=== PATIENT | male | born 1950 | race Caucasian/White ===

== ENCOUNTER 2019-03-20 14:40 | Inpatient (IN) | payer OTHER, MEDICARE ==
[~2019-03-20] VITALS: Ht 175.3 cm; Wt 103.4 kg
[~2019-03-20 14:40] MED LIST: ACET1TAB55 PO; ALBU83IN INH; AMOX500T PO; AMOX500T2 PO; ASPI325T57 PO; ASPI81TA26 PO; ATOR1TAB19 PO; AUGM500T34 PO; AUGM875T28 PO; BAYE325T16 PO; BENA20TA8 PO; BENZ-18 PO; CEFD1CAP8 PO; CHLO125TA PO; CHLO25TA PO; CHLO50TA PO; CIPR-249 PO; CIPR-250 PO; CIPR250T3 PO; DOXY100T PO; DRIS50003 PO; FEBU40TA4 PO; FURO40TA2 PO; GABA-843 PO; GLIM1TAB4 PO; GLIM2TAB4 PO; HEPA10004 INJ; HUMA100I5 SC; HYDR-3713 PO; HYOS0.1248 PO; HYOS0.1256 SL; HYOS125TA PO; INSUHUMDS SC; LASI20TA3 PO; LASI40TA9 PO; LEVO750T13 PO; LORA0.5T5 PO; LORA1TAB4 PO; LOSA25TA14 PO; METO1TAB32 PO; METO1TAB7 PO; MILK120011 PO; MOXI1TAB PO; OMEP40CA97 PO; OXYC1TAB23 PO; PANT-23 PO; PRED-351 PO; PRED10TA2 PO; PRED20TA PO; PRED20TAB PO; PRED5TA PO; PROC1INJ IV; PROC1INJ5 IJ; PROC1INJ6 INJ; RA M10TA PO; Revlimid 10mg cap PO; TORS10TA3 PO; TRES1INJ SC; VITA50005 PO; prednisone PO
[2019-03-20] MEDS: IPRATROPIUM 0.5MG/ALBUTEROL 2.5MG INH SOL UD 3ML (DUONEB)(J7620) NEB ONE ×2 (15:13→15:15)
[2019-03-20] MEDS: LEVALBUTEROL 1.25 MG/0.5 ML CONCENTRATE NEB NEB PRN ×2 (15:16→18:22)
[2019-03-20 15:29] LABS: HEMATOCRIT 31.1 % (42.0-52.0); HEMOGLOBIN 9.5 g/dl (13.5-17.5); MEAN CORPUSCULAR HEMOGLOBIN 31.5 pg (27.0-33.0); MEAN CORPUSCULAR HGB CONC 30.5 g/dl (32.0-36.5); PLATELET COUNT, AUTOMATED 180 10^3/uL (150-450); RED BLOOD COUNT 3.02 10^6/uL (4.30-6.10)
[2019-03-20 15:50] LABS: ATYPICAL LYMPH 3 % (0-5); LYMPHOCYTES 12 % (16-44); MONOCYTES 5 % (0-5); NEUTROPHILS 76 % (28-66)
[2019-03-20 15:51] LABS: ANISOCYTOSIS 2+; HYPOCHROMASIA 2+
[2019-03-20 15:52] LABS: MICROCYTOSIS 3+
[2019-03-20 15:53] LABS: BURR CELLS 1+; PLATELET ESTIMATE NORMAL (NORMAL); TEAR DROP CELLS 1+
[2019-03-20 15:54] LABS: TARGET CELLS 1+
[2019-03-20 15:55] LABS: GIANT PLATELETS 1+; HELMET CELLS 1+
--- NOTE | 2019-03-20 15:55 | REP ---
Portable chest, 03:29 p.m., single AP view with the patient semi upright: Comparisons are the portable chest dated 06/11/[address] of 06/13/2018. The lung rojas are clear. The cardiac size is upper normal. The thang, mediastinum, skeletal structures are unremarkable. There is a right IJ Eysgwh-[id number]-Khjb with the tip in the superior vena cava, unchanged. Impression: No acute cardiopulmonary findings. Right IJ Qelydq-R-[id number], unchanged. Electronically Signed by Gabriele Capone MD 03/20/2019 03:46 P
[2019-03-20 15:59] LABS: ALBUMIN 3.3 GM/DL (3.2-5.2); ALT/SGPT 28 U/L (12-78); BILIRUBIN,DIRECT 0.3 MG/DL (0.0-0.2); BILIRUBIN,TOTAL 3.5 MG/DL (0.2-1.0); CK-MB VALUE MASS 1.7 NG/ML (<3.6); CPK CREATINE PHOSPHOKINASE 24 U/L (39-308); MB/CK RELATIVE INDEX 7.08 (< OR =4); NT-PRO BNP 965 PG/ML (<125); THYROXINE (T4) 6.5 UG/DL (4.5-12.0); TOTAL PROTEIN 5.5 GM/DL (6.4-8.2); TROPONIN I < 0.02 NG/ML (< 0.10)
[2019-03-20] MEDS ORDERED: ALLO100T PO (16:03)
[2019-03-20] MEDS ORDERED: ATOR40TA75 PO (16:03)
[2019-03-20] MEDS ORDERED: LOSA25TA14 PO (16:03)
[2019-03-20] MEDS ORDERED: FURO20TA2 PO ×2 (16:03)
[2019-03-20] MEDS ORDERED: VITA50005 PO (16:03)
[2019-03-20] MEDS ORDERED: HYDR-3713 PO (16:03)
[2019-03-20] MEDS ORDERED: ASPI81TA85 PO (16:03)
[2019-03-20] MEDS ORDERED: AUGM875T28 PO (16:05)
[2019-03-20 16:09] LABS: BLOOD UREA NITROGEN 38 MG/DL (7-18); CALCIUM LEVEL 8.5 MG/DL (8.8-10.2); CARBON DIOXIDE LEVEL 30 MEQ/L (21-32); CHLORIDE LEVEL 103 MEQ/L (98-107); CREATININE FOR GFR 1.29 MG/DL (0.70-1.30); GLOMERULAR FILTRATION RATE 59.1 (>49); GLUCOSE, FASTING 120 MG/DL (70-100); POTASSIUM SERUM 4.5 MEQ/L (3.5-5.1); SODIUM LEVEL 139 MEQ/L (136-145)
[2019-03-20] MEDS ORDERED: LIDOCAINE 5% (LIDODERM) PATCH TD ONE (16:15)
[2019-03-20] MEDS ORDERED: NS 500 ML IV ONE (16:15)
[2019-03-20] MEDS ORDERED: ISOVUE-370 76% 100ML VIAL (Q9967) As Ordered ONE (16:55)
--- NOTE | 2019-03-20 17:59 | REPVR ---
PROCEDURE INFORMATION: Exam: US Abdomen Limited, Right Upper Quadrant Exam date and time: 03/20/2019 5:30 PM Age: 68 years old Clinical indication: Abdominal pain; Flank; Right upper quadrant (ruq); Additional info: Ruq pain TECHNIQUE: Imaging protocol: Real-time ultrasound of the abdomen with image documentation. Examination was focused on the right upper quadrant. COMPARISON: GALLBLADDER US 04/28/2015 8:17 PM FINDINGS: Liver: Heterogeneous liver raising the suspicion for hepatic cirrhosis. Other infiltrating hepatic disorders are not excluded. No focal hepatic mass or intrahepatic duct dilatation. Gallbladder: Numerous tiny stones within the gallbladder. No gallbladder wall thickening or pericholecystic fluid. Common bile duct: Normal caliber common bile duct measuring 4.1 mm. Pancreas: Nonvisualization of the tail of the pancreas. No focal abnormality identified within the pancreas head or body. No pancreatic duct dilatation. Right kidney: The right kidney is normal in size measuring 10.9 cm in length. No focal right renal lesion or hydronephrosis. Mild thinning of the right renal cortex. IMPRESSION: 1. Cholelithiasis. 2. Heterogeneous liver raising the suspicion for hepatic cirrhosis. 3. Right renal cortical atrophy. Electronically signed by: Kory Rushing On 03/20/2019 18:00:47 PM
[2019-03-20] MEDS ORDERED: LORazepam 0.5 MG TAB PO ONE (18:30)
--- NOTE | 2019-03-20 18:38 | REPVR ---
PROCEDURE INFORMATION: Exam: CT Angiography Chest With Contrast Exam date and time: 03/20/2019 5:58 PM Age: 68 years old Clinical indication: Shortness of breath; Additional info: Hypoxia TECHNIQUE: Imaging protocol: Computed tomographic angiography of the chest with intravenous contrast. 3D rendering: MIP and/or 3D reconstructed images were created by the technologist. Radiation optimization: All CT scans at this facility use at least one of these dose optimization techniques: automated exposure control; mA and/or kV adjustment per patient size (includes targeted exams where dose is matched to clinical indication); or iterative reconstruction. Contrast material: ISOVUE 370; Contrast volume: 75 ml; Contrast route: IV; COMPARISON: CT ANGIO CHEST 05/12/2014 4:31 PM FINDINGS: Limitations: This examination is suboptimal for evaluation of mid and lower lung zone pulmonary arteries secondary to cardiac motion induced artifact. Tubes, catheters and devices: Right chest wall port with catheter tip in the upper SVC. Pulmonary arteries: No pulmonary arterial embolism identified. Aorta: Unremarkable. No aortic aneurysm. No aortic dissection. Lungs: Mild centrilobular pulmonary emphysema, most severe in the upper lung zones. Bilateral apical scar and parenchymal densities, improved compared to the prior examination. There are faint ground-glass lung opacities scattered about both lungs. Pleural space: Unremarkable. No pneumothorax. No pleural effusion. Heart: Coronary atherosclerosis. No cardiomegaly or pericardial effusion. Gallbladder and bile ducts: Cholelithiasis. Lymph nodes: Unremarkable. No enlarged lymph nodes. Bones/joints: Degenerative spondylosis of the thoracic spine. No fracture or suspicious bone lesion. Soft tissues: Unremarkable. IMPRESSION: 1. No pulmonary arterial embolism identified. 2. Mild pulmonary emphysema. 3. Scattered faint ground-glass lung opacities. 4. Cholelithiasis. Electronically signed by: Kory Rushing On 03/20/2019 18:40:13 PM
[2019-03-20] MEDS ORDERED: MAALOX 30 ML SUSP *UDC PO PRN (19:15)
[2019-03-20] MEDS ORDERED: ACETAMINOPHEN TAB 650MG DOSE (2X325MG) PO PRN (19:15)
[2019-03-20] MEDS ORDERED: MOM 30ML SUSPENSION UDC PO PRN (19:15)
--- NOTE | 2019-03-20 19:17 | HPEPDOC ---
[facility] Medical History & Physical Date of Admission Mar 20, 2019 Date of Service: Mar 20, 2019 Primary Care Physician: Salty Piedra Attending Physician: MELANI MORRIS MD History and Physical TIME OF SERVICE: 7:45 PM CHIEF COMPLAINT: Shortness of breath HISTORY OF PRESENT ILLNESS: This is a 68-year-old male who presents with complaints of progressively worsening shortness of breath since Thursday shortly after he was discharged from [facility] where was treated for an upper respiratory tract infection. He denies having associated chest pain, or runny nose. Per discussion with ER provider on arrival his O2 sats were in the 90s on 2-3 L by nasal cannula. He is also complaining of right upper quadrant abdominal pain for more than 1 month that's worse with eating. He denies having vomiting. He reports being told that he had gallbladder sludge but surgery was not going to be done because the procedure be risky. 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 HOME MEDICATIONS: Please see below. PHYSICAL EXAMINATION: VITAL SIGNS: Please see below GEN: well nourished / well developed/ appears ill INTEGUMENT: He doesn't have facial plethora HEENT:NCAT / lips cyanotic / NC in place / mucus membranes moist and pink / sclera anicteric CVS: RRR/ radial and dorsalis pedis pulses intact LUNGS: He has not using accessory muscles / there is decreased respiratory expansion/ lungs are hyper resonant on percussion / he has decreased breath sounds bilaterally ABDOMEN: soft & tender with palpation on the right side MSK/EXTREMITIES: range of motion intact in all 4 extremities NEURO: CN 2-12 are grossly intact / speech is not dysarthric PSYCH: alert and oriented to person place and time/ able to understand and follow all commands LABORATORY DATA: See below. IMAGING: Chest x-ray " Impression: No acute cardiopulmonary findings. Right IJ [id number], unchanged." Gallbladder ultrasound " IMPRESSION: 1. Cholelithiasis. 2. Heterogeneous liver raising the suspicion for hepatic cirrhosis. 3. Right renal cortical atrophy. " CTA chest " IMPRESSION: 1. No pulmonary arterial embolism identified. 2. Mild pulmonary emphysema. 3. Scattered faint ground-glass lung opacities. 4. Cholelithiasis. MICROBIOLOGY: Please see below. ASSESSMENT: Mr. Torres is a 68-year-old male with a past hx of ILD, chronic O2 dependent respiratory failure, MDS with anemia, CAD, GERD, gout, IDDM, CKD III, HFpEF, carpal tunnel, chronic anorectal fistula who is admitted for evaluation of SIRS and acute hypoxemic respiratory failure. PLAN: 1. Acute hypoxemic respiratory failure Possibly due to upper respiratory tract infection vs ILD exacerbation, less likely 2/2 fluid overload He is requiring more oxygen than his baseline of 2-3 L His ABG, BNP and chest x-ray have been reviewed The mild lactic acidosis is possibly due to hypoxemia? Plan: Admit to PCU/supplemental oxygen/continuous pulse ox/elevate head of bed/aspiration precautions/will give 1 dose of IV Lasix/follow-up influenza it's negative, we will start him on steroids and consult pulmonology / we will continue the antibiotics that he was taking at home, but will not escalate the abx because he denies having a cough, runny nose or fever 2. SIRS Alan reactive as we do not have a source of infection. SIRS criteria include HR >90, > RR 20 & WBC count of 17 His lactic acid was elevated Plan: Sepsis protocol w repeat lactic acid and exam in 3H / continue with abx / give IV fluids because his BNP was elevated and he does not appear dry /f/u blood cx / Acetaminophen PRN for fever 3. ILD Plan: Give steroids if influenza panel is negative / the daytime team may consult pulmonology in the morning 4. Chronic HFpEF/pulmonary hypertension / chronic hypertension He is clinically compensated despite elevated BNP. The chest x-ray showed clear lung rojas. Plan: Continue with home dose of Lasix, metoprolol and losartan in the morning 5. Abdominal pain Possibly secondary to biliary dyskinesia vs other hepatic process. The CT reported that his liver looks heterogeneous and he may have liver cirrhosis, but His LFTs are within normal limits Plan: HIDA scan if there are findings consistent with biliary dyskinesia, the daytime team may consider surgery consult/will need an outpatient GI eval to determine if needs biopsy or additional testing to rule out liver cirrhosis 6. MDS with macrocytic anemia Plan: Hemoglobin is at baseline Plan: Follow-up CBC 7. Chronic CAD Plan: Continue metoprolol, aspirin, and atorvastatin 8. IDDM with neuropathy Plan: diabetic diet / f/u accuchecks & A1C / hypoglycemia protocol / switch from Tresiba 45 units daily to detemir 45 units daily / continue with lispro 3 units of breakfast, 7 units at lunchtime, and 10 units at dinnertime / continue with gabapentin / sliding scale insulin / hold oral anti-glycemics 9. CKD 3 Plan: Follow-up BMP 10. Gout Plan: Continue with allopurinol 11. GERD Plan: Continue with PPI 12. Nonhealing anorectal fistula Plan: Wound care 13. Obesity with BMI of 34 This complicates care. DVT PROPHYLAXIS: Lovenox DISPOSITION: Home after more than 2 midnight's stay Vital Signs Vital Signs Date Time Temp Pulse Resp B/P (MAP) Pulse Ox O2 Delivery O2 Flow Rate FiO2 03/20/19 18:55 96 93 03/20/19 18:15 129/96 (107) 03/20/19 16:55 20 Nasal Cannula 2.0 03/20/19 14:40 99.9 Laboratory Data Labs 24H Laboratory Tests 2 03/20/19 15:11: Nucleated Red Blood Cells % (auto) 0.0, Neutrophils 76H, Band Neutrophils 4, Lymphocytes (Manual) 12L, Monocytes (Manual) 5, Atypical Lymphocytes 3, Hypochromasia 2+, Anisocytosis 2+, Microcytosis 3+, Macrocytosis 1+, Target Cells 1+, Tear Drop Cells 1+, Helmet Cells 1+, Melodie Cells 1+, Giant Platelets 1+, Platelet Estimate NORMAL, Anion Gap 6L, Glomerular Filtration Rate 59.1, Lactic Acid Level 2.6*H, Calcium Level 8.5L, Total Bilirubin 3.5H, Direct Bilirubin 0.3H, Aspartate Amino Transf (AST/SGOT) 14, Alanine Aminotransferase (ALT/SGPT) 28, Alkaline Phosphatase 105, Total Creatine Kinase 24L, Creatine Kinase MB 1.7, Creatine Kinase MB Relative Index 7.08H, Troponin I < 0.02, WS-Yle-R-Type Natriuretic Peptide 965H, Total Protein 5.5L, Albumin 3.3, Albumin/Globulin Ratio 1.50, Thyroid Stimulating Hormone (TSH) 2.800, Thyroxine (T4) 6.5 03/20/19 15:28: POC pH (Misc Panel) 7.524H, POC Base Excess (Misc Panel) 6.0H, POC Saturated Percent O2 (Misc) 95, POC pO2 (Misc Panel) 66.0L, POC pCO2 (Misc Panel) 35.0, POC HCO3 (Misc Panel) 28.9H, POC Total CO2 (Misc Panel) 30.0H CBC/BMP Laboratory Tests 03/20/19 15:11 Microbiology Microbiology 03/20/19 Blood Culture, Received Pending Home Medications Scheduled Allopurinol (Allopurinol) 100 Mg Tablet, 200 MG PO DAILY Amoxicillin/Potassium Clav (Augmentin 875-125 Tablet) 1 Each Tablet, 1 TAB PO BID ON 3RD DAY OF 5 DAY COURSE Aspirin (Aspir 81) 81 Mg Tablet.dr, 81 MG PO DAILY Atorvastatin Calcium (Atorvastatin Calcium) 40 Mg Tablet, 40 MG PO DAILY Ergocalciferol (Vitamin D2) (Vitamin D2) 50,000 Units Cap, 50,000 UNITS PO 1XWK MONDAYS Furosemide (Furosemide) 20 Mg Tablet, 20 MG PO ACS Furosemide (Furosemide) 20 Mg Tablet, 40 MG PO DAILY LUNCH Gabapentin (Gabapentin) 300 Mg Capsule, 300 MG PO QHS Hyoscyamine Sulfate (Hyoscyamine Sulfate) 0.125 Mg Tab.subl, 0.125 MG PO WM Insulin Degludec (Tresiba Flextouch U-200) 200 Unit/1 Ml Insuln.pen, 45 UNIT SC DAILY Insulin Lispro (Humalog Kwikpen U-100) 100 Unit/Ml Inj, 3 UNITS SC AC USES AT BREAKFAST Insulin Lispro (Humalog Kwikpen U-100) 100 Unit/Ml Inj, 7 UNITS SC AC USES AT LUNCHTIME Insulin Lispro (Humalog Kwikpen U-100) 100 Unit/Ml Inj, 10 UNITS SC AC USES AT DINNERTIME Losartan Potassium (Losartan Potassium) 25 Mg Tablet, 25 MG PO DAILY Melatonin (Melatonin) 10 Mg Tablet, 10 MG PO QHS Metoprolol Succinate (Metoprolol Succinate) 50 Mg Tab.er.24h, 50 MG PO DAILY Pantoprazole Sodium (Pantoprazole Sodium) 40 Mg Tablet.dr, 40 MG PO DAILY Scheduled PRN Hydrocodone/Acetaminophen (Hydrocodone-Acetamin 5-325 mg) 1 Each Tablet, 1 TAB PO Q6H PRN for PAIN Lorazepam (Lorazepam) 0.5 Mg Tablet, 0.5 MG PO Q6H PRN for ANXIETY Allergies Coded Allergies: No Known Allergies (Unverified , 09/24/18) A-FIB/CHADSVASC A-FIB History Current/History of A-Fib/PAF?: No Current PO Anticoag Therapy: No MELANI MORRIS MD Mar 20, 2019 19:17
[2019-03-20] MEDS ORDERED: FUROSEMIDE 20 MG TAB PO ONE (20:00)
[2019-03-20] MEDS: DOCUSATE SODIUM 100 MG CAP PO SCH (20:11)
[2019-03-20] MEDS ORDERED: GLUCAGON FOR INJ 1 MG VIAL (J1610) SC PRN (20:45)
[2019-03-20] MEDS ORDERED: DEXTROSE 50% 50 ML SYRINGE IV PRN (20:45)
[2019-03-20] MEDS ORDERED: GLUCOSE 4 GM CHEW TABLET PO PRN (20:45)
[2019-03-20] MEDS ORDERED: NORCO, ANEXSIA 5/325MG TABLET (HYDROcodone/ACETAMINOPHEN) PO PRN (20:45)
[2019-03-20] MEDS ORDERED: HumaLOG INSULIN (NovoLOG) PER UNIT SC SCH (21:00)
[2019-03-20] MEDS: **NOTE PATIENT COMMENT** MISC XX SCH (21:00)
[2019-03-20 22:00] VITALS: BP 146/63; O2SAT 95
[2019-03-20] MEDS: GABAPENTIN 300 MG CAP PO SCH (22:30)
[2019-03-20] MEDS: methylPREDNISolone INJ 125 MG/2 ML VIAL (J2930) IV SCH (22:30)
[2019-03-20] MEDS: LORazepam 0.5 MG TAB PO PRN (22:30)
[2019-03-20 23:00] VITALS: O2SAT 96
[2019-03-20] MEDS: RAMELTEON 8 MG TAB (ROZEREM) PO SCH (23:45)
[2019-03-21] VITALS (13 sets, daily range): BP systolic 103–145; BP diastolic 54–96; O2SAT 90–96
[2019-03-21 00:26] LABS: INFLUENZA A AMPLIFICATION NEGATIVE (NEGATIVE); INFLUENZA B AMPLIFICATION NEGATIVE (NEGATIVE)
[2019-03-21] MEDS: AUGMENTIN 875 MG TAB PO SCH ×3 (00:58→21:25)
[2019-03-21 05:07] LABS: HEMATOCRIT 26.4 % (42.0-52.0); HEMOGLOBIN 8.1 g/dl (13.5-17.5); MEAN CORPUSCULAR HEMOGLOBIN 31.5 pg (27.0-33.0); MEAN CORPUSCULAR HGB CONC 30.7 g/dl (32.0-36.5); MEAN CORPUSCULAR VOLUME 102.7 fl (80.0-96.0); PLATELET COUNT, AUTOMATED 135 10^3/uL (150-450); RED BLOOD COUNT 2.57 10^6/uL (4.30-6.10)
[2019-03-21 05:27] LABS: CALCIUM LEVEL 7.7 MG/DL (8.8-10.2); CREATININE FOR GFR 1.3 MG/DL (0.70-1.30); GLOMERULAR FILTRATION RATE 58.6 (>49); MAGNESIUM LEVEL 2.1 MG/DL (1.8-2.4); POTASSIUM SERUM 5.5 MEQ/L (3.5-5.1)
[2019-03-21 06:09] LABS: ABG BASE EXCESS 2.3 (-2.0-2.0); ABG HCO3 26.5 MEQ/L (22.0-26.0); ABG O2 SATURATION 97.9 % (95.0-99.0); ABG PARTIAL PRESSURE CO2 39.8 mmHg (35.0-45.0); ABG PARTIAL PRESSURE O2 105.7 mmHg (75.0-100.0); ABG STANDARD HCO3 26.5 MEQ/L (22.0-26.0); ABG TOTAL CO2 27.8 MEQ/L (23.0-31.0); ABG pH (ARTERIAL) 7.442 UNITS (7.350-7.450)
[2019-03-21] MEDS: HumaLOG INSULIN (NovoLOG) PER UNIT SC SCH ×7 (06:12→21:00)
[2019-03-21] MEDS ORDERED: HumaLOG INSULIN (NovoLOG) PER UNIT SC SCH (07:30)
[2019-03-21] MEDS: HYOSCYAMINE SULFATE 0.125 MG SUBL TABLET PO SCH ×3 (08:00→18:06)
[2019-03-21] MEDS ORDERED: VITAMIN D 50,000 UNITS CAPSULE (ERGOCALCIFEROL 1.25MG) PO SCH (09:00)
[2019-03-21] MEDS ORDERED: PANTOPRAZOLE 40MG TAB (PROTONIX) PO SCH (09:00)
--- NOTE | 2019-03-21 12:19 | ECGEPIP ---
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
--- NOTE | 2019-03-21 12:28 | ECGEPIP ---
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
[2019-03-21] MEDS ORDERED: PATIROMER SORBITEX CALCIUM 8.4 GM POWDER PACKET (VELTASSA) PO ONE (13:00)
[2019-03-21] MEDS: ENOXAPARIN 40 MG/0.4 ML SYRINGE (J1650) SC SCH (14:12)
[2019-03-21] MEDS: ASPIRIN 81 MG ENTERIC TAB PO SCH (14:13)
[2019-03-21] MEDS: allopurinoL 100 MG TAB PO SCH (14:13)
[2019-03-21] MEDS: ATORVASTATIN 20 MG TAB PO SCH (14:13)
[2019-03-21] MEDS: LEVEMIR (INSULIN DETEMIR) 1 UNITS/0.01ML SC SCH (14:15)
[2019-03-21] MEDS: METOPROLOL SUCC (TopROL XL) 50MG **XL** TAB PO SCH (14:16)
[2019-03-21] MEDS: FUROSEMIDE 20 MG TAB PO SCH ×2 (14:16→17:29)
[2019-03-21] MEDS: DOCUSATE SODIUM 100 MG CAP PO SCH ×2 (14:32→21:25)
[2019-03-21] MEDS: LOSARTAN 25 MG TAB PO SCH (14:35)
--- NOTE | 2019-03-21 15:06 | REP ---
Hepatobiliary scan and gallbladder ejection fraction: History: Right upper quadrant abdominal pain, worse with eating. Question low gallbladder ejection fraction. Cholelithiasis on ultrasound of the right upper quadrant the previous day. Technique: 6.6 mCi of technetium-99m mebrofenin was injected and sequential anterior images are acquired. 65 minutes after the mebrofenin injection, the patient consumed 8 ounces Ensure and an additional 60 minutes of imaging was acquired. Regions of interest are plotted around the gallbladder. Findings: The initial hepatocellular parenchymal uptake phase is normal and homogeneous. Intra- and extra-hepatic bile ducts are labeled by the 15 -minute image. The gallbladder is first labeled on the 15 -minute image. There is normal washout from the liver parenchyma into the gallbladder and small intestine on subsequent images. The gallbladder ejection fraction is zero %. Values greater than 35 % are considered normal with this technique. Impression: Normal hepatobiliary scan and zero percent gallbladder ejection fraction. Electronically Signed by Flo Lilly MD 03/21/2019 02:57 P
[2019-03-21] MEDS ORDERED: GLUCAGON FOR INJ 1 MG VIAL (J1610) SC PRN (17:15)
[2019-03-21] MEDS ORDERED: GLUCOSE 4 GM CHEW TABLET PO PRN (17:15)
[2019-03-21] MEDS ORDERED: DEXTROSE 50% 50 ML SYRINGE IV PRN (17:15)
[2019-03-21] MEDS: LORazepam 0.5 MG TAB PO PRN (17:29)
--- NOTE | 2019-03-21 17:51 | IPNPDOC ---
Date Seen The patient was seen on 03/21/19. Progress Note SUBJECTIVE: 68-year-old male with past medical history of interstitial lung disease, COPD, coronary artery disease, diabetes mellitus, chronic kidney disease, diastolic CHF and MDS (transfusion dependent), was admitted for exacerbation of ILD/COPD. Patient was recently admitted at [facility] for 3- 4 days, received IV steroids and antibiotics with improvement in symptoms, was sent home without any oral steroids and his symptoms recurred, worsened over the past few days and he came here. Patient reports improvement in shortness of breath and cough since getting treatment here, including steroids, nebulizers and antibiotics. Patient is currently close to his baseline, usually uses oxygen during sleep, 2 L via nasal cannula. Patient is currently satting well on 2 L of oxygen. He denies any additional symptoms at this time, denies any chest pain, nausea, vomiting, abdominal pain or diarrhea. He does report a dry cough at this time. 10 point review of system is negative except for above PHYSICAL EXAMINATION: VITAL SIGNS: Please see below. GENERAL: No distress HEENT: Normocephalic, atraumatic, moist mucous membranes NECK: Supple CARDIOVASCULAR EXAMINATION: S1, S2, no murmurs RESPIRATORY EXAMINATION: Scattered rhonchi, mild wheezing ABDOMINAL EXAMINATION: Soft, nontender, nondistended, positive bowel sounds EXTREMITIES: Range of motion intact SKIN: No rash NEUROLOGICAL EXAMINATION: Alert and oriented 3, no focal deficits PSYCHIATRIC EXAMINATION: Calm and cooperative LABORATORY DATA, IMAGING STUDIES, MICROBIOLOGY: Please see below. ASSESSMENT AND PLAN: 68-year-old male with multiple medical comorbidities is admitted for COPD/ILD exacerbation. PROBLEMS: 1. COPD/ILD exacerbation: Flu and respiratory viral panel negative, CT without any consolidation, continue IV steroids, Augmentin, and nebulizer treatments as needed. Continue supplemental oxygen as needed to maintain O2 sats between 88- 92%. 2. CHF with preserved ejection fraction: Continue home Lasix, will target a net negative goal of 500-1000 mL. 3. Coronary artery disease: Continue optimal medical management with aspirin, statin and beta selvin. 4. Diabetes mellitus: Continue home Levemir, pre-meal insulin along with sliding scale insulin coverage before meals and at bedtime. 5. Hypertension: Continue losartan and metoprolol. 6. GERD: Continue Protonix. 7. CKD: Creatinine at baseline, will monitor 8. Biliary sludge: Patient has had issues with biliary sludge for the past few years, eval by general surgery the outpatient setting, surgery was not performed due to medical comorbidities, HIDA scan shows appropriate drainage of bile into the gallbladder with gallbladder's ejection fraction of 0%. Patient clinically benign, we'll recommend outpatient follow-up with general surgery. DVT prophylaxis: Lovenox. GI prophylaxis: Protonix VS, I&O, 24H, Fishbone Vital Signs/I&O Vital Signs Date Time Temp Pulse Resp B/P (MAP) Pulse Ox O2 Delivery O2 Flow Rate FiO2 03/21/19 15:52 98.4 81 18 103/55 (71) 94 1.6 03/21/19 11:03 Nasal Cannula I&O- Last 24 Hours up to 6 AM 03/21/19 06:00 Intake Total 1130 ml Output Total 1075 ml Balance 55 ml Laboratory Data 24H LABS Laboratory Tests 2 03/20/19 19:57: Lactic Acid Followup at 4 Hours 1.6, NH-Odu-D-Type Natriuretic Peptide 913H 03/20/19 22:13: Bedside Glucose (Misc Panel) 164H 03/20/19 23:48: Influenza Type A (RT-PCR) NEGATIVE, Influenza Type B (RT-PCR) NEGATIVE 03/21/19 03:17: Bedside Glucose (Misc Panel) 249H 03/21/19 04:31: Nucleated Red Blood Cells % (auto) 0.0, Anion Gap 9, Glomerular Filtration Rate 58.6, Calcium Level 7.7L, Magnesium Level 2.1 03/21/19 05:56: Blood Gas Bicarbonate Standard 26.5H, Arterial Blood pH 7.442, Arterial Blood Partial Pressure CO2 39.8, Arterial Blood Partial Pressure O2 105.7H, Arterial Blood Total CO2 27.8, Arterial Blood HCO3 26.5H, Arterial Blood Base Excess 2.3H, Arterial Blood Oxygen Saturation 97.9 03/21/19 13:59: Bedside Glucose (Misc Panel) 328H 03/21/19 17:16: Bedside Glucose (Misc Panel) 314H CBC/BMP Laboratory Tests 03/21/19 04:31 03/21/19 08:00 Microbiology Microbiology 03/21/19 Respiratory Virus Panel (PCR) (STEPHANIE) - Final, Complete 03/20/19 Blood Culture - Preliminary, Resulted No growth after 24 hours . All specim... RADHA THOMPSON MD Mar 21, 2019 17:51
[2019-03-21] MEDS: GABAPENTIN 300 MG CAP PO SCH (21:25)
[2019-03-21] MEDS: methylPREDNISolone INJ 125 MG/2 ML VIAL (J2930) IV SCH (21:25)
[2019-03-21] MEDS: PANTOPRAZOLE 40MG TAB (PROTONIX) PO SCH (21:25)
[2019-03-21] MEDS: RAMELTEON 8 MG TAB (ROZEREM) PO SCH (21:25)
[2019-03-22] VITALS (8 sets, daily range): BP systolic 120–139; BP diastolic 43–60; O2SAT 93–100
[2019-03-22] MEDS: **NOTE PATIENT COMMENT** MISC XX SCH ×2 (00:56→21:00)
[2019-03-22] MEDS: LORazepam 0.5 MG TAB PO PRN ×2 (05:32→17:12)
[2019-03-22 06:33] LABS: HEMATOCRIT 27.7 % (42.0-52.0); HEMOGLOBIN 8.6 g/dl (13.5-17.5); PLATELET COUNT, AUTOMATED 190 10^3/uL (150-450); RED BLOOD COUNT 2.69 10^6/uL (4.30-6.10); WHITE BLOOD COUNT 7.1 10^3/uL (4.0-10.0)
[2019-03-22 06:56] LABS: ALBUMIN 3.1 GM/DL (3.2-5.2); BILIRUBIN,TOTAL 2.5 MG/DL (0.2-1.0); CALCIUM LEVEL 8.5 MG/DL (8.8-10.2); CREATININE FOR GFR 1.5 MG/DL (0.70-1.30); GLOMERULAR FILTRATION RATE 49.7 (>49); MAGNESIUM LEVEL 2.3 MG/DL (1.8-2.4); TOTAL PROTEIN 5.8 GM/DL (6.4-8.2)
[2019-03-22] MEDS: LEVEMIR (INSULIN DETEMIR) 1 UNITS/0.01ML SC SCH (07:56)
[2019-03-22] MEDS: HumaLOG INSULIN (NovoLOG) PER UNIT SC SCH ×7 (07:56→21:00)
[2019-03-22] MEDS: DOCUSATE SODIUM 100 MG CAP PO SCH ×2 (07:57→21:00)
[2019-03-22] MEDS: ASPIRIN 81 MG ENTERIC TAB PO SCH (07:57)
[2019-03-22] MEDS: AUGMENTIN 875 MG TAB PO SCH (07:58)
[2019-03-22] MEDS: HYOSCYAMINE SULFATE 0.125 MG SUBL TABLET PO SCH ×3 (07:58→17:12)
[2019-03-22] MEDS: allopurinoL 100 MG TAB PO SCH (07:58)
[2019-03-22] MEDS: ENOXAPARIN 40 MG/0.4 ML SYRINGE (J1650) SC SCH (07:58)
[2019-03-22] MEDS: METOPROLOL SUCC (TopROL XL) 50MG **XL** TAB PO SCH (07:59)
[2019-03-22] MEDS: LOSARTAN 25 MG TAB PO SCH (07:59)
[2019-03-22] MEDS: ATORVASTATIN 20 MG TAB PO SCH (08:00)
[2019-03-22] MEDS: FUROSEMIDE 20 MG TAB PO SCH ×2 (11:39→17:12)
--- NOTE | 2019-03-22 17:15 | IPNPDOC ---
Date Seen The patient was seen on 03/22/19. Progress Note SUBJECTIVE: 68-year-old male with past medical history of interstitial lung disease, COPD, coronary artery disease, diabetes mellitus, chronic kidney disease, diastolic CHF and MDS (transfusion dependent), was admitted for exacerbation of ILD/COPD. Patient was recently admitted at [facility] for 3- 4 days, received IV steroids and antibiotics with improvement in symptoms, was sent home without any oral steroids and his symptoms recurred, worsened over the past few days and he came here. Patient reports improvement in shortness of breath and cough since getting treatment here, including steroids, nebulizers and antibiotics. Patient is currently close to his baseline, usually uses oxygen during sleep, 2 L via nasal cannula. Patient is currently sating well on 2 L of oxygen. He denies any additional symptoms at this time, denies any chest pain, nausea, vomiting, abdominal pain or diarrhea. He does report a dry cough at this time. 03/22/19 Patient comfortable in bed, no acute events overnight, reports improvement in dyspnea and cough, no other complaints at this time. 10 point review of system is negative except for above PHYSICAL EXAMINATION: VITAL SIGNS: Please see below. GENERAL: No distress HEENT: Normocephalic, atraumatic, moist mucous membranes NECK: Supple CARDIOVASCULAR EXAMINATION: S1, S2, no murmurs RESPIRATORY EXAMINATION: Scattered rhonchi, mild wheezing ABDOMINAL EXAMINATION: Soft, nontender, nondistended, positive bowel sounds EXTREMITIES: Range of motion intact SKIN: No rash NEUROLOGICAL EXAMINATION: Alert and oriented 3, no focal deficits PSYCHIATRIC EXAMINATION: Calm and cooperative LABORATORY DATA, IMAGING STUDIES, MICROBIOLOGY: Please see below. ASSESSMENT AND PLAN: 68-year-old male with multiple medical comorbidities is admitted for COPD/ILD exacerbation. PROBLEMS: 1. COPD/ILD exacerbation: Respiratory viral panel positive for human rhinovirus, supportive care, CT without any consolidation, decrease Solu-Medrol to 20 mg twice a day, discontinue antibiotics. Continue, nebulizer treatments as needed and supplemental oxygen to maintain O2 sats between 88-92%. 2. CHF with preserved ejection fraction: Continue home Lasix, will target a net negative goal of 500-1000 mL. patient with significant bradycardia with bigeminy, heart rate as low as in the 30s, patient asymptomatic, cardiology consulted given patient's history of coronary artery disease and stent placement. 3. Coronary artery disease: Continue optimal medical management with aspirin, statin and beta selvin. 4. Diabetes mellitus: Continue home Levemir, pre-meal insulin along with sliding scale insulin coverage before meals and at bedtime. 5. Hypertension: Continue losartan and metoprolol. 6. GERD: Continue Protonix. 7. CKD: Creatinine close to baseline, will monitor 8. Biliary sludge: Patient has had issues with biliary sludge for the past few years, eval by general surgery the outpatient setting, surgery was not performed due to medical comorbidities, HIDA scan shows appropriate drainage of bile into the gallbladder with gallbladder's ejection fraction of 0%. Patient clinically benign, will recommend outpatient follow-up with general surgery. DVT prophylaxis: Lovenox. GI prophylaxis: Protonix VS, I&O, 24H, Fishbone Vital Signs/I&O Vital Signs Date Time Temp Pulse Resp B/P (MAP) Pulse Ox O2 Delivery O2 Flow Rate FiO2 03/22/19 14:05 94 Nasal Cannula 1.0 03/22/19 14:00 98.3 67 20 122/43 (69) I&O- Last 24 Hours up to 6 AM 03/22/19 06:00 Intake Total 360 ml Output Total 1025 ml Balance -665 ml Laboratory Data 24H LABS Laboratory Tests 2 03/21/19 17:16: Bedside Glucose (Misc Panel) 314H 03/21/19 21:12: Bedside Glucose (Misc Panel) 195H 03/22/19 06:07: Nucleated Red Blood Cells % (auto) 0.3H, Anion Gap 6L, Glomerular Filtration Rate 49.7, Calcium Level 8.5L, Phosphorus Level 4.0, Magnesium Level 2.3, Total Bilirubin 2.5H, Aspartate Amino Transf (AST/SGOT) 6L, Alanine Aminotransferase (ALT/SGPT) 22, Alkaline Phosphatase 93, Total Protein 5.8L, Albumin 3.1L, Albumin/Globulin Ratio 1.15 03/22/19 11:18: Bedside Glucose (Misc Panel) 332H 03/22/19 16:46: Bedside Glucose (Misc Panel) 218H CBC/BMP Laboratory Tests 03/22/19 06:07 Microbiology Microbiology 03/21/19 Respiratory Virus Panel (PCR) ([facility]PHANIE) - Final, Complete 03/20/19 Blood Culture - Preliminary, Resulted No Growth after 48 hours. All Specime... RADHA THOMPSON MD Mar 22, 2019 17:15
[2019-03-22] MEDS: RAMELTEON 8 MG TAB (ROZEREM) PO SCH (20:59)
[2019-03-22] MEDS: GABAPENTIN 300 MG CAP PO SCH (21:00)
[2019-03-22] MEDS: PANTOPRAZOLE 40MG TAB (PROTONIX) PO SCH (21:00)
[2019-03-23] VITALS (7 sets, daily range): BP systolic 111–148; BP diastolic 42–66
[2019-03-23 07:16] LABS: HEMATOCRIT 26.4 % (42.0-52.0); HEMOGLOBIN 8.4 g/dl (13.5-17.5); MEAN CORPUSCULAR HEMOGLOBIN 32.4 pg (27.0-33.0); MEAN CORPUSCULAR HGB CONC 31.8 g/dl (32.0-36.5); MEAN CORPUSCULAR VOLUME 101.9 fl (80.0-96.0); PLATELET COUNT, AUTOMATED 198 10^3/uL (150-450); RED BLOOD COUNT 2.59 10^6/uL (4.30-6.10); WHITE BLOOD COUNT 7.7 10^3/uL (4.0-10.0)
[2019-03-23 07:48] LABS: CALCIUM LEVEL 8.6 MG/DL (8.8-10.2); CREATININE FOR GFR 1.44 MG/DL (0.70-1.30); GLOMERULAR FILTRATION RATE 52.1 (>49); MAGNESIUM LEVEL 2.2 MG/DL (1.8-2.4); PHOSPHORUS LEVEL 3.1 MG/DL (2.5-4.9); POTASSIUM SERUM 4.4 MEQ/L (3.5-5.1)
[2019-03-23] MEDS: HumaLOG INSULIN (NovoLOG) PER UNIT SC SCH ×7 (08:52→21:00)
[2019-03-23] MEDS: methylPREDNISolone INJ 40 MG/1 ML VIAL (J2920) IV SCH ×2 (08:53→21:23)
[2019-03-23] MEDS: ASPIRIN 81 MG ENTERIC TAB PO SCH (08:53)
[2019-03-23] MEDS: HYOSCYAMINE SULFATE 0.125 MG SUBL TABLET PO SCH ×3 (08:53→17:06)
[2019-03-23] MEDS: LEVEMIR (INSULIN DETEMIR) 1 UNITS/0.01ML SC SCH (08:53)
[2019-03-23] MEDS: allopurinoL 100 MG TAB PO SCH (08:53)
[2019-03-23] MEDS: DOCUSATE SODIUM 100 MG CAP PO SCH ×2 (08:54→21:00)
[2019-03-23] MEDS: ATORVASTATIN 20 MG TAB PO SCH (08:54)
[2019-03-23] MEDS: ENOXAPARIN 40 MG/0.4 ML SYRINGE (J1650) SC SCH (08:54)
[2019-03-23] MEDS: LOSARTAN 25 MG TAB PO SCH (08:54)
[2019-03-23] MEDS: LIDOCAINE 5% (LIDODERM) PATCH TD SCH (08:58)
--- NOTE | 2019-03-23 08:58 | IPN ---
DATE: 03/23/2019 This is an addendum to the note that I just dictated we were able to receive records from [facility] in almost immediate fashion. It turns out he had a cardiac catheterization October 08, 2018. It revealed severe disease in proximal left anterior descending (LAD) with patent stent in right coronary artery (RCA) and no disease in circumflex coronary artery. Left ventricular ejection fraction was judged to be 35-40%. He received a intravascular ultrasound guided stent to proximal to mid-LAD; it was a bare metal stent. This actually changes the situation. It indicates that he had significant left ventricular systolic dysfunction and consequently I will have to obtain a followup echocardiogram to make sure that these LV dysfunction has, if not resolved, at least did not get any worse. Provided he has severe LV systolic dysfunction, we may need to address this more aggressively. In case he does not, then I would still agree with him being discharged to have an outpatient evaluation in the near future. SELMA
--- NOTE | 2019-03-23 09:17 | CR ---
DATE OF CONSULTATION: 03/23/2019 REFERRING PHYSICIAN: Dr. Jayme Spencer INDICATION: Bradycardia. Mr. Torres is known to me. I saw him in consultation approximately 2 years ago, but I do not see him on an outpatient basis. He has a multitude of medical problems, for which he follows with numerous physicians. His dominant issues are interstitial lung disease that is followed by Dr. Rogers, and coronary artery disease and congestive heart failure with preserved left ventricular systolic function and he follows with a group from [facility], specifically with Dr. Linda. Unfortunately, I do not have much information about his prior cardiac interventions. He presented to [facility] ([facility]) with worsening dyspnea. There was not associated chest discomfort and he denies any weight gain, if anything, he believes he actually lost about 10 pounds in the last few weeks. He denies any orthopnea or paroxysmal nocturnal dyspnea (PND). On admission, he was treated with treatment that involved administration of steroids. He tells me that there has been fairly substantial improvement and he actually feels well enough that he would like to go home. I was asked to see him because he was quite bradycardic. He is in sinus rhythm but has very frequent ventricular ectopy, including brief runs of nonsustained ventricular tachycardia, but the day before yesterday he had episode when his heart rate was in high 30s and consequently his Toprol XL 50 mg was discontinued. He has not had any bradycardia since, even though at nighttime when he sleeps his heart rate occasionally goes into high 40s, but most often time it is in 50s and during the daytime higher. He continues to have a lot of premature ventricular contraction (PVC) and the frequency probably even slightly increased compared to his baseline. Patient reports that he does have occasional palpitations. He denies any history of dizziness, near syncope. He denies any recent chest discomfort. PAST MEDICAL HISTORY: 1. Interstitial lung disease, followed by Dr. Rogers. 2. History of coronary artery disease. He reports that he had total two coronary interventions. He believes that the last one was in May 2018 and to the best of his recollection he received additional stent, but he is unable to provide any additional details. 3. Heart failure with preserved ejection fraction. 4. Myelodysplastic syndrome. 5. Chronic renal insufficiency. 6. Gastroesophageal reflux disease (GERD). 7. History of perianal fistulas. 8. Gout. SOCIAL HISTORY: Patient is , lives with his . He does not smoke. He denies significant alcohol use. FAMILY HISTORY: Father with coronary artery disease, and mom had peripheral vascular disease and carotid artery disease. OUTPATIENT MEDICATIONS: - allopurinol 100 mg a day - Augmentin - aspirin 81 a day - atorvastatin 40 mg a day - vitamin D2 50,000 units once a week - furosemide 20 mg a day in the morning and 40 at lunch - gabapentin 300 mg at night - insulin - lorazepam 0.5 mg every 6 hours as needed for anxiety - losartan 25 mg a day - melatonin 10 mg at bedtime - metoprolol succinate 50 mg a day - pantoprazole 40 mg daily There are NO MEDICATION ALLERGIES. REVIEW OF SYSTEMS: Basically was covered in history of present illness, but he denies any recent fever, chills, nausea or vomiting. He denies any recent chest discomfort, even though he says that he has occasional pressure-like chest discomfort that is invariably triggered by fatty meals and associated with discomfort in his right upper quadrant. No significant peripheral edema. He says that if anything there was modest weight loss lately. The rest of review of system is per HPI or negative. PHYSICAL EXAMINATION: Mr. Torres is a 68-year-old man who appears approximately his age. He does not appear acutely ill. Vital Signs: Blood pressure 111/42. Heart rate has been in 60s and 70s. He is afebrile. Saturation 98% on 1 liter of oxygen by nasal cannula. Weight is 104.6 kg. He appears mildly pale. His jugular venous pulse (JVP) is not high. Lungs are reasonably clear. I do not appreciate wheezing, crackles or rhonchi. Heart exam reveals regular rhythm with frequent ectopy. I do not appreciate any distinct murmur but with his obesity he has somewhat muffled heart sounds. Abdomen is obese but soft. I do not appreciate any guarding. Extremities are free of edema. Peripheral pulses are palpable. Neurologically, he is intact. LABORATORIES: WBC count 7.7, hemoglobin 8.4, hematocrit 26, and platelet count 198,000. Basic Metabolic Panel: Sodium 138, potassium 4.4, BUN 41, creatinine 1.4, GFR 52, and glucose 168. Magnesium was 2.2, albumin 3.1, and N-terminal proBNP was 913. He had a CT angiography of the chest which revealed no evidence for pulmonary embolus and was consistent with faint ground-glass opacities and mild emphysema. No pleural effusion and no pericardial effusion. ECG reveals presence of sinus rhythm with frequent ventricular ectopy and nonspecific repolarization abnormalities. There is suspicion for potential old septal wall myocardial infarction (MA). The last echocardiogram that I could find in this system was in May 2018 and revealed hyperdynamic LV systolic function, mild mitral and aortic insufficiency, moderate tricuspid insufficiency, and moderate pulmonary hypertension. ASSESSMENT AND PLAN: Mr. Torres is a 68-year-old, polymorbid man who has a history of coronary artery disease with coronary interventions details of which I am not aware of. He presented with worsening shortness of breath, which most likely was related to respiratory condition as he responded favorably to administration of steroids. He was quite bradycardic and consequently the dose of beta-selvin 50 mg of Toprol XL was completely taken off his medication list. His heart rate is now improving but he has a lot of ventricular ectopy. He does not have any electrolyte abnormalities. When I saw him previously 2 years ago it was a similar situation when he had a very frequent ventricular ectopy as well. Even though the danger of nonsustained venous thromboembolism (VT) in setting of preserved left ventricular systolic function is less it is certainly concerning. I believe that he will be able to tolerate low-dose beta-selvin and I am going to restart it in reduced dose of 25 mg a day. We are requesting records from [facility] with the results of his last cardiac catheterization, but with no history of syncope and no angina I believe he can be discharged home. He informed me that he has scheduled followup with his enterprise infrastructure architect in the very near future, then additional management can be addressed. He probably will need another evaluation for ischemia. SELMA
[2019-03-23] MEDS: LORazepam 0.5 MG TAB PO PRN ×2 (11:22→18:01)
[2019-03-23] MEDS: FUROSEMIDE 20 MG TAB PO SCH ×2 (11:23→17:06)
--- NOTE | 2019-03-23 18:21 | IPNPDOC ---
Date Seen The patient was seen on 03/23/19. Progress Note SUBJECTIVE: 68-year-old male with past medical history of interstitial lung disease, COPD, coronary artery disease, diabetes mellitus, chronic kidney disease, diastolic CHF and MDS (transfusion dependent), was admitted for exacerbation of ILD/COPD. Patient was recently admitted at [facility] for 3- 4 days, received IV steroids and antibiotics with improvement in symptoms, was sent home without any oral steroids and his symptoms recurred, worsened over the past few days and he came here. Patient reports improvement in shortness of breath and cough since getting treatment here, including steroids, nebulizers and antibiotics. Patient is currently close to his baseline, usually uses oxygen during sleep, 2 L via nasal cannula. Patient is currently sating well on 2 L of oxygen. He denies any additional symptoms at this time, denies any chest pain, nausea, vomiting, abdominal pain or diarrhea. He does report a dry cough at this time. 03/22/19 Patient comfortable in bed, no acute events overnight, reports improvement in dyspnea and cough, no other complaints at this time. 03/23/19 Patient comfortable in chair, no acute events, reports improvement in dyspnea and cough from yesterday, evaluated by cardiology who recommended repeat echocardiogram, patient is frustrated regarding how long it is taking to get the echocardiogram done. 10 point review of system is negative except for above PHYSICAL EXAMINATION: VITAL SIGNS: Please see below. GENERAL: No distress HEENT: Normocephalic, atraumatic, moist mucous membranes NECK: Supple CARDIOVASCULAR EXAMINATION: S1, S2, no murmurs RESPIRATORY EXAMINATION: Scattered rhonchi, mild wheezing ABDOMINAL EXAMINATION: Soft, nontender, nondistended, positive bowel sounds EXTREMITIES: Range of motion intact SKIN: No rash NEUROLOGICAL EXAMINATION: Alert and oriented 3, no focal deficits PSYCHIATRIC EXAMINATION: Calm and cooperative LABORATORY DATA, IMAGING STUDIES, MICROBIOLOGY: Please see below. ASSESSMENT AND PLAN: 68-year-old male with multiple medical comorbidities is admitted for COPD/ILD exacerbation. PROBLEMS: 1. COPD/ILD exacerbation: CT without any consolidation, continue Solu-Medrol 20 mg twice a day. Continue nebulizer treatments as needed and supplemental oxygen to maintain O2 sats between 88-92%. 2. CHF: Continue home Lasix, cardiology evaluation appreciated, TTE pending. Metoprolol dose decreased to 25 mg per day. 3. Coronary artery disease: Continue optimal medical management with aspirin, statin and beta selvin. 4. Diabetes mellitus: Continue home Levemir, pre-meal insulin along with sliding scale insulin coverage before meals and at bedtime. 5. Hypertension: Continue losartan and metoprolol. 6. GERD: Continue Protonix. 7. CKD: Creatinine close to baseline, will monitor 8. Biliary sludge: Patient has had issues with biliary sludge for the past few years, eval by general surgery the outpatient setting, surgery was not performed due to medical comorbidities, HIDA scan shows appropriate drainage of bile into the gallbladder with gallbladder's ejection fraction of 0%. Patient clinically benign, will recommend outpatient follow-up with general surgery. DVT prophylaxis: Lovenox. GI prophylaxis: Protonix VS, I&O, 24H, Fishbone Vital Signs/I&O Vital Signs Date Time Temp Pulse Resp B/P (MAP) Pulse Ox O2 Delivery O2 Flow Rate FiO2 03/23/19 18:00 97.1 76 20 146/65 (92) 99 Nasal Cannula 1.0 I&O- Last 24 Hours up to 6 AM 03/23/19 06:00 Intake Total 2080 ml Output Total 875 ml Balance 1205 ml Laboratory Data 24H LABS Laboratory Tests 2 03/22/19 20:04: Bedside Glucose (Misc Panel) 218H 03/23/19 06:52: Nucleated Red Blood Cells % (auto) 0.4H, Anion Gap 4L, Glomerular Filtration Rate 52.1, Calcium Level 8.6L, Phosphorus Level 3.1#, Magnesium Level 2.2 03/23/19 11:42: Bedside Glucose (Misc Panel) 200H 03/23/19 16:25: Bedside Glucose (Misc Panel) 191H CBC/BMP Laboratory Tests 03/23/19 06:52 Microbiology Microbiology 03/21/19 Respiratory Virus Panel (PCR) ([facility]IE) - Final, Complete 03/20/19 Blood Culture - Preliminary, Resulted No Growth after 72 hours. All specime... RADHA THOMPSON MD Mar 23, 2019 18:21
[2019-03-23] MEDS ORDERED: METOPROLOL SUCC *XL* 25MG TAB (TopROL *XL*) PO SCH (21:00)
[2019-03-23] MEDS: **NOTE PATIENT COMMENT** MISC XX SCH (21:22)
[2019-03-23] MEDS: GABAPENTIN 300 MG CAP PO SCH (21:23)
[2019-03-23] MEDS: PANTOPRAZOLE 40MG TAB (PROTONIX) PO SCH (21:23)
[2019-03-23] MEDS: RAMELTEON 8 MG TAB (ROZEREM) PO SCH (21:23)
[2019-03-24 02:00] VITALS: BP 135/64
[2019-03-24 03:00] VITALS: O2SAT 100
[2019-03-24 06:28] LABS: HEMOGLOBIN 8.9 g/dl (13.5-17.5); MEAN CORPUSCULAR HGB CONC 30.7 g/dl (32.0-36.5); MEAN CORPUSCULAR VOLUME 104.3 fl (80.0-96.0); PLATELET COUNT, AUTOMATED 257 10^3/uL (150-450); RED BLOOD COUNT 2.78 10^6/uL (4.30-6.10)
[2019-03-24 06:50] LABS: CALCIUM LEVEL 8.4 MG/DL (8.8-10.2); CREATININE FOR GFR 1.34 MG/DL (0.70-1.30); GLOMERULAR FILTRATION RATE 56.6 (>49); POTASSIUM SERUM 4.9 MEQ/L (3.5-5.1)
[2019-03-24] MEDS: LIDOCAINE 5% (LIDODERM) PATCH TD SCH (08:15)
[2019-03-24] MEDS: ASPIRIN 81 MG ENTERIC TAB PO SCH (08:16)
[2019-03-24] MEDS: methylPREDNISolone INJ 40 MG/1 ML VIAL (J2920) IV SCH (08:16)
[2019-03-24] MEDS: ATORVASTATIN 20 MG TAB PO SCH (08:16)
[2019-03-24] MEDS: allopurinoL 100 MG TAB PO SCH (08:16)
[2019-03-24] MEDS: HYOSCYAMINE SULFATE 0.125 MG SUBL TABLET PO SCH ×2 (08:16→13:25)
[2019-03-24] MEDS: ENOXAPARIN 40 MG/0.4 ML SYRINGE (J1650) SC SCH (08:16)
[2019-03-24] MEDS: LORazepam 0.5 MG TAB PO PRN (08:17)
[2019-03-24] MEDS: DOCUSATE SODIUM 100 MG CAP PO SCH (08:17)
[2019-03-24] MEDS: LOSARTAN 25 MG TAB PO SCH (08:17)
[2019-03-24] MEDS: LEVEMIR (INSULIN DETEMIR) 1 UNITS/0.01ML SC SCH (08:18)
[2019-03-24] MEDS: HumaLOG INSULIN (NovoLOG) PER UNIT SC SCH ×4 (08:18→13:26)
--- NOTE | 2019-03-24 09:12 | IPN ---
DATE: 03/24/2019 Mr. Torres is not a happy camper today. He is feeling physically well and would like to go home, but apparently he did not like how he was treated yesterday, even though he would not give me any specifics. From a purely medical point of view though he denies any chest pain or shortness of breath and feels that he is back to his baseline and would like to go home. Telemetry monitoring continues to reveal very frequent ventricular ectopy including runs of nonsustained ventricular tachycardia. But most of these runs are very brief, usually triplets, occasionally four beats in a row, and are not overly fast. He denies any dizziness or near-syncopal sensation. Vital signs: Blood pressure 135/64, heart rate has been in 70s. He is afebrile 90 and his fluid balance yesterday was recorded about positive 1300, but there was no recorded output. Weight is recorded 103.4. He is alert and oriented and appropriate. His JVP does not look high. Lungs are clear. Good air movement. No wheezing, no crackles. Heart exam reveals regular rhythm with occasional ectopy. I do not appreciate gallop or murmur, and there is no edema. LABORATORY: Hemoglobin 8.9, hematocrit 29, platelet count 257,000. Basic metabolic panel sodium 139, potassium 4.9, BUN 61, creatinine 1.3 and glucose 313. ASSESSMENT/PLAN: Mr. Torres is a 68-year-old man who has a very complex medical history that includes interstitial lung disease, but also coronary artery disease with interventions to both RCA and LAD, and a history of left ventricular systolic dysfunction as evidenced during angiography in September 2018. He was admitted with shortness of breath, which most likely was pulmonary in nature because he responded very well to administration of steroids. I am waiting for the results of echocardiogram before allowing the patient to go home. If he has preserved left ventricular systolic function, then the presence of nonsustained VT is much less concerning. On the other hand, if his LVEF should be less than 35% then we need to address that because it would put him for a high risk for sudden cardiac . Talking to the patient, I am not convinced that he would stay regard less, but I think we should obtain this information. He follows with a cardiology group in [place] and tells me that he has a followup appointment with Dr. Linda in the very near future. I stressed the importance that he keeps that appointment. He was earlier bradycardic and the Toprol was discontinued, but we restarted at a lower dose and so far he is tolerating it well. There have not been any overly bradycardic rates. MTDD
[2019-03-24 10:00] VITALS: BP 139/62
[2019-03-24 10:14] VITALS: O2SAT 95
[2019-03-24] MEDS: FUROSEMIDE 20 MG TAB PO SCH (13:25)
[2019-03-24 14:00] VITALS: BP 144/51
[2019-03-24] MEDS ORDERED: PRED10TA2 PO (16:51)
[2019-03-24] MEDS ORDERED: METO1TAB32 PO (16:51)
--- NOTE | 2019-03-24 18:27 | DS.PDOC ---
Discharge Summary General Date of Admission Mar 20, 2019 at 19:12 Date of Discharge 03/24/19 Attending Physician: RADHA THOMPSON MD Discharge Summary PROCEDURES PERFORMED DURING STAY: None. ADMITTING DIAGNOSES: 1. COPD/ILD exacerbation. DISCHARGE DIAGNOSES: 1. COPD/ILD exacerbation. COMPLICATIONS/CHIEF COMPLAINT: Actue Hypoxemia Respiratory Failure,Ipf. HISTORY OF PRESENT ILLNESS: 68-year-old male with past medical history of COPD, interstitial lung disease, coronary artery disease status post stent placements was admitted for COPD/ILD exacerbation. Patient was treated with IV steroids and supportive care with good clinical response, oxygen requirements were brought down to his baseline. During his stay, patient developed significant bradycardia with bigeminy, a value by cardiology, repeat echo. Cardiac shows EF of 55% and he has been cleared by cardiology for discharge and close outpatient follow-up with his own broadcast maintenance engineer. Patient only has an appointment with his broadcast maintenance engineer, strongly advised to keep that appointment. Patient is comfortable in the morning, without any complaints, clinically and hemodynamically stable for discharge and outpatient follow-up. HOSPITAL COURSE: As above. DISCHARGE MEDICATIONS: Please see below. ALLERGIES: Please see below. PHYSICAL EXAMINATION: VITAL SIGNS: Please see below. GENERAL: No distress HEENT: Normocephalic, atraumatic, moist mucous membranes NECK: Supple CARDIOVASCULAR EXAMINATION: S1, S2, no murmurs RESPIRATORY EXAMINATION: Scattered rhonchi, mild wheezing ABDOMINAL EXAMINATION: Soft, nontender, nondistended, positive bowel sounds EXTREMITIES: Range of motion intact SKIN: No rash NEUROLOGICAL EXAMINATION: Alert and oriented 3, no focal deficits PSYCHIATRIC EXAMINATION: Calm and cooperative LABORATORY DATA: Please see below. IMAGING: CT chest with groundglass opacities, no consolidation PROGNOSIS: Fair ACTIVITY: As tolerated. DIET: Cardiac with consistent carbs DISCHARGE PLAN: Follow-up with broadcast maintenance engineer, voice instructor and PCP within 1-2 weeks DISPOSITION: Home. DISCHARGE INSTRUCTIONS: 1. As above. DISCHARGE CONDITION: Stable. TIME SPENT ON DISCHARGE: Greater than 35 minutes. Vital Signs/I&Os Vital Signs Date Time Temp Pulse Resp B/P (MAP) Pulse Ox O2 Delivery O2 Flow Rate FiO2 03/24/19 14:00 97.5 78 18 144/51 (82) 98 Nasal Cannula 1.0 I&O- Last 24 Hours up to 6 AM 03/24/19 06:00 Intake Total 1050 ml Balance 1050 ml Laboratory Data Labs 24H Laboratory Tests 2 03/23/19 19:48: Bedside Glucose (Misc Panel) 231H 03/24/19 05:56: Nucleated Red Blood Cells % (auto) 0.3H, Anion Gap 8, Glomerular Filtration Rate 56.6, Calcium Level 8.4L 03/24/19 11:41: Bedside Glucose (Misc Panel) 349H 03/24/19 16:43: Bedside Glucose (Misc Panel) 372H CBC/BMP Laboratory Tests 03/24/19 05:56 FSBS Laboratory Tests Test 03/23/19 19:48 03/24/19 11:41 03/24/19 16:43 Range/Units Bedside Glucose (Misc Panel) 231 349 372 80-115 MG/DL Microbiology Microbiology 03/21/19 Respiratory Virus Panel (PCR) (STEPHANIE) - Final, Complete 03/20/19 Blood Culture - Preliminary, Resulted No Growth after 72 hours. All specime... Discharge Medications Scheduled Allopurinol (Allopurinol) 100 Mg Tablet, 200 MG PO DAILY, (Reported) Aspirin (Aspir 81) 81 Mg Tablet.dr, 81 MG PO DAILY, (Reported) Atorvastatin Calcium (Atorvastatin Calcium) 40 Mg Tablet, 40 MG PO DAILY, (Reported) Ergocalciferol (Vitamin D2) (Vitamin D2) 50,000 Units Cap, 50,000 UNITS PO 1XWK, (Reported) MONDAYS Furosemide (Furosemide) 20 Mg Tablet, 20 MG PO ACS, (Reported) Furosemide (Furosemide) 20 Mg Tablet, 40 MG PO DAILY, (Reported) LUNCH Gabapentin (Gabapentin) 300 Mg Capsule, 300 MG PO QHS, (Reported) Hyoscyamine Sulfate (Hyoscyamine Sulfate) 0.125 Mg Tab.subl, 0.125 MG PO WM, (Reported) Insulin Degludec (Tresiba Flextouch U-200) 200 Unit/1 Ml Insuln.pen, 45 UNIT SC DAILY, (Reported) Insulin Lispro (Humalog Kwikpen U-100) 100 Unit/Ml Inj, 3 UNITS SC AC, (Reported) USES AT BREAKFAST Insulin Lispro (Humalog Kwikpen U-100) 100 Unit/Ml Inj, 7 UNITS SC AC, (Reported) USES AT LUNCHTIME Insulin Lispro (Humalog Kwikpen U-100) 100 Unit/Ml Inj, 10 UNITS SC AC, (Reported) USES AT DINNERTIME Losartan Potassium (Losartan Potassium) 25 Mg Tablet, 25 MG PO DAILY, (Reported) Melatonin (Melatonin) 10 Mg Tablet, 10 MG PO QHS, (Reported) Metoprolol Succinate (Metoprolol Succinate) 25 Mg Tab.er.24h, 25 MG PO QPM Pantoprazole Sodium (Pantoprazole Sodium) 40 Mg Tablet.dr, 40 MG PO DAILY, (Reported) Prednisone (Prednisone) 10 Mg Tablet, 1 TAB PO DAILY taper: 4 tabs daily x2 days, then 3 tabs daily x2 days, then 2 tabs daily x2 days then 1 tab daily x2 days. Scheduled PRN Hydrocodone/Acetaminophen (Hydrocodone-Acetamin 5-325 mg) 1 Each Tablet, 1 TAB PO Q6H PRN for PAIN, (Reported) Lorazepam (Lorazepam) 0.5 Mg Tablet, 0.5 MG PO Q6H PRN for ANXIETY, (Reported) Allergies Coded Allergies: No Known Allergies (Unverified , 09/24/18) RADHA THOMPSON MD Mar 24, 2019 18:27
--- NOTE | 2019-03-24 20:37 | ECHO ---
DATE OF PROCEDURE: 03/24/2019 REFERRING PHYSICIAN: Dr. Fontanez INDICATION: Coronary artery disease, congestive heart failure, ventricular tachycardia. HEIGHT: 175 cm WEIGHT: 105 kg DIMENSIONS: IVS: 1.4 LV: 5.8 LVPW: 1.4 Aorta: 3.9 LA: 5.2 IVC: 1.5 Left atrium volume index: 60 Mitral E wave velocity: 74, A wave: 101 E prime septal: 6.4 E prime lateral: 9.7 FINDINGS: The study is of good technical quality. The patient is in sinus rhythm with very frequent ventricular ectopy including episodes of ventricular bigeminy. Left ventricle is normal size. There is [id number] left ventricular hypertrophy. There is hyperdynamic LV systolic function, I estimate left ventricular ejection fraction (LVEF) 65-70%. No segmental wall motion abnormalities are appreciated. Right ventricle also appears normal size and systolic function. Left atrium is severely enlarged. Right atrium is probably normal. Aortic valve is minimally sclerotic. It has preserved mobility. Mitral, tricuspid valve appear normal. Pulmonic valve was poorly visualized. Trace pericardial effusion is noted. Inferior vena cava is of normal caliber and appropriately collapses with respiration indicative of normal central venous pressure. Aortic root is normal. Aortic arch and abdominal aorta were not well seen. Doppler interrogation of aortic valve reveals trivial stenosis (mean gradient 8 mmHg) and trace insufficiency. There is mild mitral insufficiency and trace tricuspid insufficiency. Calculated pulmonary artery pressure is in 30s corresponding to mild pulmonary hypertension. Mitral inflow pattern and tissue Doppler imaging of mitral annulus reveal grade 1 diastolic dysfunction. CONCLUSIONS 1. Study is of good technical quality. The patient is in sinus rhythm with frequent ventricular ectopy. 2. Normal left ventricle (LV) size with mild to moderate left ventricular hypertrophy (LVH), preserved or hyperdynamic LV systolic function and grade 1 diastolic dysfunction. 3. Severe left atrial enlargement. 4. Aortic sclerosis with trivial stenosis and trace insufficiency. 5. Mild mitral insufficiency. 6. Normal central venous pressure and mild pulmonary hypertension. COMMENT Subacute bacterial endocarditis (SBE) prophylaxis is not recommended.
--- NOTE | 2019-03-25 20:00 | ECGEPIP ---
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
== END 2019-03-24 18:13 | disposition home or self-care (01) | DRG 191 ==
LOC: M ED 14:40 → M ED INP 19:12 → ENRESERV 20:26 → M ICU 21:39 → M MSPAV 03-21 16:18
PROVIDERS: ADMIT Internal Medicine; ATTEND Internal Medicine
DX: J44.1 Chronic obstructive pulmonary disease with (acute) exacerbation (principal); I50.32 Chronic diastolic (congestive) heart failure; I13.0 Hypertensive heart and chronic kidney disease with heart failure and stage 1 through stage 4 chronic kidney disease, or unspecified chronic kidney disease; E87.2 Acidosis; J84.9 Interstitial pulmonary disease, unspecified; I47.2 Ventricular tachycardia; J96.11 Chronic respiratory failure with hypoxia; I25.10 Atherosclerotic heart disease of native coronary artery without angina pectoris; K21.9 Gastro-esophageal reflux disease without esophagitis; R00.1 Bradycardia, unspecified; K82.8 Other specified diseases of gallbladder; M10.9 Gout, unspecified; E11.22 Type 2 diabetes mellitus with diabetic chronic kidney disease; N18.3 Chronic kidney disease, stage 3 (moderate); D46.9 Myelodysplastic syndrome, unspecified; I27.20 Pulmonary hypertension, unspecified; E11.40 Type 2 diabetes mellitus with diabetic neuropathy, unspecified; E66.9 Obesity, unspecified; Z99.81 Dependence on supplemental oxygen; Z68.34 Body mass index [BMI] 34.0-34.9, adult; Z79.82 Long term (current) use of aspirin; Z79.4 Long term (current) use of insulin; Z79.899 Other long term (current) drug therapy; Z95.5 Presence of coronary angioplasty implant and graft